=== PATIENT | female | born 1990 | race Caucasian/White ===

== ENCOUNTER 2024-05-29 18:07 | Emergency (ER) | payer OTHER ==
[~2024-05-29] VITALS: Ht 162.6 cm; Wt 65.4 kg
[2024-05-29 18:22] VITALS: BP 136/88; PULSE 89; RESP 18; TEMP 97.8; O2SAT 100
== END 2024-05-29 19:30 | disposition home or self-care (01) ==
LOC: MED 18:07
DX: H53.8 Other visual disturbances (principal)
CPT/HCPCS: 99281